=== PATIENT | female | born 1980 | race Caucasian/White ===

== ENCOUNTER 2020-10-11 15:27 | Emergency (ER) | payer OTHER ==
[~2020-10-11 15:27] MED LIST: ASPIRIN CHEWABL81 MG PO; ATIVAN0.5 MG PO; BACLOFEN 10MG T10 MG PO; BACTRIM DS TAB1 EACH PO; BENTYL10 MG PO; DAILY VITAMIN1 EACH PO; FLEXERIL10 MG PO; GLUCOPHAGE500 MG PO; HCTZ25 MG PO; IBUPROFEN800 MG PO; LEXAPRO10 MG PO; TOPROL XL50 MG PO; WELLBUTRIN75 MG PO; ZANTAC150 MG PO; ZOFRAN4 MG PO; vit b 12
[2020-10-11 16:14] LABS: BILIRUBIN NEGATIVE (NEGATIVE); BLOOD NEGATIVE Ery/uL (NEGATIVE); CLARITY CLEAR (CLEAR); COLOR YELLOW (YELLOW); GLUCOSE (U) NORMAL (NORMAL); LEUKOCYTES NEGATIVE Leu/uL (NEGATIVE); NITRITE NEGATIVE (NEGATIVE); PROTEIN NEGATIVE (NEGATIVE); SPECIFIC GRAVITY 1.015 (1.001-1.030); UROBILINOGEN 0.2 mg/dL (0.2-1.0); pH 6.5 (5.0-9.0)
[2020-10-11] MEDS ORDERED: CYCLOBENZAPRINE10 MG PO (16:29)
[2020-10-11] MEDS ORDERED: NAPROXEN500 MG PO (16:29)
== END 2020-10-11 18:40 | disposition home or self-care (01) ==
LOC: FER 15:27
PROVIDERS: Emergency Medicine
DX: N83.202 Unspecified ovarian cyst, left side (principal); K21.9 Gastro-esophageal reflux disease without esophagitis; I10 Essential (primary) hypertension; Z88.5 Allergy status to narcotic agent; Z88.8 Allergy status to other drugs, medicaments and biological substances
CPT/HCPCS: 76830; 81003; J1885

== ENCOUNTER 2020-10-14 08:45 | Emergency (ER) | payer OTHER ==
[~2020-10-14 08:45] MED LIST changes: +CYCLOBENZAPRINE10 MG PO; +NAPROXEN500 MG PO
[2020-10-14 10:08] LABS: BILIRUBIN NEGATIVE (NEGATIVE); BLOOD NEGATIVE Ery/uL (NEGATIVE); CLARITY CLEAR (CLEAR); COLOR YELLOW (YELLOW); GLUCOSE (U) NORMAL (NORMAL); LEUKOCYTES NEGATIVE Leu/uL (NEGATIVE); NITRITE NEGATIVE (NEGATIVE); PROTEIN NEGATIVE (NEGATIVE); UROBILINOGEN 0.2 mg/dL (0.2-1.0); pH 6.5 (5.0-9.0)
[2020-10-14 10:23] LABS: BASOPHIL 0.3 % (0-2); EOSINOPHIL 1.5 % (0-5); HCT 42.1 % (37.0-47.0); HGB 13.4 g/dl (12.5-16.0); LYMPHOCYTE 22.5 % (15-48); MCH 28.6 pg (25.0-31.0); MCHC 31.8 g/dL (32.0-36.0); MONOCYTE 9.9 % (0-12); MPV 9.6 fL (6.0-9.5); NEUTROPHIL 65.3 % (41-80); NRBC 0; PLT 265 K/uL (150-400); RBC 4.68 M/uL (4.20-5.40); RDW 14.1 % (11.5-14.0)
[2020-10-14 10:46] LABS: ALBUMIN 3.3 g/dL (3.4-5.0); BILIRUBIN - TOTAL 0.4 mg/dL (0.2-1.0); BUN/CREAT RATIO (CALC) 22.5 RATIO; CREATININE 0.71 mg/dL (0.51-0.95); GLOBULIN (CALCULATION) 3.8 g/dL; POTASSIUM 3.9 mmol/L (3.5-5.1); TOTAL PROTEIN 7.1 g/dL (6.4-8.2)
[2020-10-14] MEDS ORDERED: NORCO 5-325 TA1 EACH PO (13:20)
== END 2020-10-14 14:03 | disposition home or self-care (01) ==
LOC: FER 08:45
PROVIDERS: Emergency Medicine
DX: N83.292 Other ovarian cyst, left side (principal); Z90.710 Acquired absence of both cervix and uterus; Z90.721 Acquired absence of ovaries, unilateral; Z90.79 Acquired absence of other genital organ(s)
CPT/HCPCS: 36415; 76856; 80053; 81003; 84702; 84703; 85025; J1170; J2405; J2550

== ENCOUNTER 2021-07-20 18:49 | Emergency (ER) | payer OTHER | END 2021-07-20 22:10 | disposition home or self-care (01) | LOC: FER 18:49 | DX: U07.1 COVID-19 (principal); R07.89 Other chest pain; M79.662 Pain in left lower leg; I10 Essential (primary) hypertension; Z53.29 Procedure and treatment not carried out because of patient's decision for other reasons; Z88.5 Allergy status to narcotic agent; Z88.8 Allergy status to other drugs, medicaments and biological substances; Z79.82 Long term (current) use of aspirin; Z79.899 Other long term (current) drug therapy ==

== ENCOUNTER 2022-01-26 21:24 | Emergency (ER) | payer OTHER ==
[~2022-01-26 21:24] MED LIST changes: +NORCO 5-325 TA1 EACH PO; +VENTOLIN HFA18 GM INH; +ZOFRAN4 M1 PO; +ZPAK PO
[2022-01-26 22:22] LABS: BILIRUBIN NEGATIVE (NEGATIVE); BLOOD 1+ Ery/uL (NEGATIVE); CLARITY CLEAR (CLEAR); COLOR YELLOW (YELLOW); GLUCOSE (U) NORMAL (NORMAL); LEUKOCYTES 1+ Leu/uL (NEGATIVE); NITRITE NEGATIVE (NEGATIVE); PROTEIN NEGATIVE (NEGATIVE); SPECIFIC GRAVITY >=1.030 (1.001-1.030); UROBILINOGEN 0.2 mg/dL (0.2-1.0)
[2022-01-26 22:36] LABS: BACTERIA 2+; URINARY WBC 20-50
[2022-01-26 23:51] LABS: BASOPHIL 0.3 % (0-2); EOSINOPHIL 0.8 % (0-5); HCT 41.7 % (37.0-47.0); HGB 13.6 g/dl (12.5-16.0); MCH 29.5 pg (25.0-31.0); MCHC 32.6 g/dL (32.0-36.0); MCV 90.5 fL (78.0-100.0); MONOCYTE 9.4 % (0-12); MPV 9.5 fL (6.0-9.5); NRBC 0; PLT 281 K/uL (150-400); RBC 4.61 M/uL (4.20-5.40); RDW 13.6 % (11.5-14.0); WBC 11.1 K/uL (4.0-10.5)
[2022-01-27 00:07] LABS: BUN/CREAT RATIO (CALC) 17.8 RATIO; CREATININE 0.73 mg/dL (0.51-0.95); POTASSIUM 3.7 mmol/L (3.5-5.1)
[2022-01-27] MEDS ORDERED: BACTRIM DS TAB1 EACH PO (02:17)
[2022-01-27] MEDS ORDERED: DIFLUCAN150 MG PO (02:33)
== END 2022-01-27 02:34 | disposition home or self-care (01) ==
LOC: FER 21:24
PROVIDERS: Internal Medicine
DX: I10 Essential (primary) hypertension (principal); N39.0 Urinary tract infection, site not specified; Z79.899 Other long term (current) drug therapy; Z88.5 Allergy status to narcotic agent; Z88.8 Allergy status to other drugs, medicaments and biological substances
CPT/HCPCS: 36415; 80048; 81001; 83735; 83880; 84484; 85025; 87088; 93005; J0696

== ENCOUNTER 2022-05-05 08:15 | Emergency (ER) | payer OTHER ==
[~2022-05-05 08:15] MED LIST changes: +DIFLUCAN150 MG PO
[2022-05-05 10:39] LABS: BASOPHIL 0.5 % (0-2); EOSINOPHIL 0.8 % (0-5); HCT 42.9 % (37.0-47.0); LYMPHOCYTE 21.4 % (15-48); MCH 29.9 pg (25.0-31.0); MCHC 32.6 g/dL (32.0-36.0); MCV 91.7 fL (78.0-100.0); MONOCYTE 8.8 % (0-12); MPV 9.6 fL (6.0-9.5); NEUTROPHIL 67.7 % (41-80); NRBC 0; PLT 325 K/uL (150-400); RBC 4.68 M/uL (4.20-5.40); RDW 13.5 % (11.5-14.0); WBC 10.3 K/uL (4.0-10.5)
[2022-05-05 10:41] LABS: BILIRUBIN NEGATIVE (NEGATIVE); BLOOD NEGATIVE Ery/uL (NEGATIVE); CLARITY CLEAR (CLEAR); COLOR YELLOW (YELLOW); GLUCOSE (U) NORMAL (NORMAL); LEUKOCYTES NEGATIVE Leu/uL (NEGATIVE); NITRITE NEGATIVE (NEGATIVE); PROTEIN NEGATIVE (NEGATIVE); SPECIFIC GRAVITY 1.015 (1.001-1.030); UROBILINOGEN 0.2 mg/dL (0.2-1.0)
[2022-05-05 11:20] LABS: ALBUMIN 3.3 g/dL (3.4-5.0); BILIRUBIN - TOTAL 0.5 mg/dL (0.2-1.0); BUN/CREAT RATIO (CALC) 13.3 RATIO; CREATININE 0.75 mg/dL (0.51-0.95); GLOBULIN (CALCULATION) 4.3 g/dL; POTASSIUM 4.2 mmol/L (3.5-5.1); TOTAL PROTEIN 7.6 g/dL (6.4-8.2)
[2022-05-06 14:10] LABS: LYME TOTAL ANTIBODY CIA Negative (Negative)
== END 2022-05-05 13:21 | disposition home or self-care (01) ==
LOC: FER 08:15
PROVIDERS: Emergency Medicine
DX: R42 Dizziness and giddiness (principal); R53.1 Weakness; I10 Essential (primary) hypertension; Z88.5 Allergy status to narcotic agent; Z88.8 Allergy status to other drugs, medicaments and biological substances
CPT/HCPCS: 36415; 70450; 80053; 81003; 84484; 85025; 86618; 93005